=== PATIENT | male | born 1980 | race Caucasian/White ===

== ENCOUNTER 2016-05-13 13:59 | Emergency (ER) | payer MEDICAID ==
[~2016-05-13] VITALS: Ht 167.6 cm; Wt 64.4 kg
[2016-05-13 14:20] VITALS: BP 141/95
== END 2016-05-13 15:00 | disposition home or self-care (01) ==
LOC: ER 14:02
DX: J06.9 Acute upper respiratory infection, unspecified (principal)
CPT/HCPCS: 99283; A4606; Z7610